=== PATIENT | female | born 2000 ===

== ENCOUNTER 2023-04-23 09:05 | Outpatient (CLI) | payer OTHER | END 2023-04-23 10:33 | disposition home or self-care (01) | LOC: PRENATAL 09:05 | PROVIDERS: ATTEND Obstetrics & Gynecology Maternal & Fetal Medicine | DX: O36.80X0 Pregnancy with inconclusive fetal viability, not applicable or unspecified (principal); Z14.8 Genetic carrier of other disease; Z3A.13 13 weeks gestation of pregnancy ==

== ENCOUNTER 2023-06-11 14:46 | Outpatient (CLI) | payer OTHER | END 2023-06-11 17:45 | disposition home or self-care (01) | LOC: PRENATAL 14:46 | PROVIDERS: ATTEND Obstetrics & Gynecology Maternal & Fetal Medicine | DX: O35.3XX0 Maternal care for (suspected) damage to fetus from viral disease in mother, not applicable or unspecified (principal); O44.00 Complete placenta previa NOS or without hemorrhage, unspecified trimester; Z3A.20 20 weeks gestation of pregnancy ==

== ENCOUNTER 2023-07-15 15:13 | Outpatient (CLI) | payer OTHER ==
[2023-07-15] MEDS ORDERED: PRENATABS RX T1 EACH PO (15:24)
== END 2023-07-16 10:33 | disposition home or self-care (01) ==
LOC: OBS/DEL 15:13
PROVIDERS: ATTEND Student in an Organized Health Care Education/Training Program
DX: O26.892 Other specified pregnancy related conditions, second trimester (principal); Z3A.24 24 weeks gestation of pregnancy; V43.02XA Car driver injured in collision with other type car in nontraffic accident, initial encounter; Y93.89 Activity, other specified; Y92.89 Other specified places as the place of occurrence of the external cause; Y99.8 Other external cause status

== ENCOUNTER 2023-09-03 08:38 | Outpatient (CLI) | payer OTHER ==
[~2023-09-03 08:38] MED LIST: PRENATABS RX T1 EACH PO
== END 2023-09-03 08:41 | disposition home or self-care (01) ==
LOC: PRENATAL 08:38
PROVIDERS: ATTEND Obstetrics & Gynecology Maternal & Fetal Medicine
DX: O26.849 Uterine size-date discrepancy, unspecified trimester (principal); O36.8199 Decreased fetal movements, unspecified trimester, other fetus; Z3A.32 32 weeks gestation of pregnancy

== ENCOUNTER 2023-09-08 23:28 | Outpatient (CLI) | payer OTHER ==
[2023-09-08] MEDS ORDERED: DIALYVITE 800-1 EACH PO (23:35)
[2023-09-09 00:21] LABS: HEMATOCRIT 31.5 % (36.0-45.00); MEAN CELL VOLUME 98.5 fL (80.00-100.00); MEAN CORPUSCULAR HEMOGLOBIN 34.3 pg (27.00-32.0); MEAN CORPUSCULAR HGB CONC 34.8 g/dl (32.0-36.0); PLATELET COUNT 231 K/uL (150-450); RED CELL DISTRIBUTION WIDTH 12.4 % (11.5-14.5)
[2023-09-09 00:31] LABS: URINE APPEARANCE Cloudy; URINE BILIRRUBIN Negative (NEGATIVE); URINE BLOOD Negative; URINE COLOR Yellow; URINE GLUCOSE Negative (NEGATIVE); URINE LEUKOCYTE Trace; URINE NITRATE Negative; URINE PROTEIN Negative (NEGATIVE); URINE UROBILINOGEN 0.2 E.U./dl
[2023-09-09 00:32] LABS: URINE BACTERIA 3246.8 uL (0.0-1933); URINE EPITHELIAL CELLS 42.3 uL (0.0-38.8); URINE RBC 3.5 uL (0.0-20.8); URINE WBC 63.8 uL (0.0-23.2)
[2023-09-09 00:58] LABS: INR 0.95; PARTIAL THROMBOPLASTIN TIME 26.9 SECONDS (22.0-34.0)
== END 2023-09-09 18:09 | disposition home or self-care (01) ==
LOC: OBS/DEL 23:28
PROVIDERS: ATTEND Obstetrics & Gynecology
DX: O26.893 Other specified pregnancy related conditions, third trimester (principal); M54.89 Other dorsalgia; Z3A.32 32 weeks gestation of pregnancy
CPT/HCPCS: 36415; 76815; 76817; 76819; 96365; 96372; 99284; J0690

== ENCOUNTER 2023-10-12 12:37 | Inpatient (IN) | payer OTHER ==
[~2023-10-12] VITALS: Ht 170.2 cm; Wt 3.2 kg
[~2023-10-12 12:37] MED LIST changes: +DIALYVITE 800-1 EACH PO
[2023-11-01 02:49] LABS: PH,URINE 6.5 (5.0-8.0); URINE APPEARANCE Clear; URINE BILIRRUBIN Negative (NEGATIVE); URINE BLOOD Negative; URINE COLOR Yellow; URINE GLUCOSE Negative (NEGATIVE); URINE LEUKOCYTE Negative; URINE NITRATE Negative; URINE PROTEIN Negative (NEGATIVE); URINE UROBILINOGEN 0.2 E.U./dl
[2023-11-01 02:51] LABS: HEMATOCRIT 35.5 % (36.0-45.00); HEMOGLOBIN 12.3 g/dL (12.0-15.00); MEAN CELL VOLUME 99.5 fL (80.00-100.00); MEAN CORPUSCULAR HEMOGLOBIN 34.3 pg (27.00-32.0); MEAN CORPUSCULAR HGB CONC 34.5 g/dl (32.0-36.0); PLATELET COUNT 235 K/uL (150-450); RED BLOOD COUNT 3.57 M/uL (4.00-6.00); RED CELL DISTRIBUTION WIDTH 12.8 % (11.5-14.5)
[2023-11-01 02:52] LABS: URINE BACTERIA 512.7 uL (0.0-1933); URINE EPITHELIAL CELLS 19.7 uL (0.0-38.8); URINE WBC 5.5 uL (0.0-23.2)
[2023-11-01 03:22] LABS: INR < 0.93; PARTIAL THROMBOPLASTIN TIME 26.2 SECONDS (22.0-34.0); PROTHROMBIN TIME 9.4 SECONDS (9.0-11.5)
[2023-11-01 22:50] LABS: ABG PH 7.345 (7.35-7.45); ABG PO2 28.8 mmHg (80-100); ABG pCO2 44.9 mmHg (35-45); BASE EXCESS -1.9 mmol/l; BICARBONATE 23.9 mmol/l (23-25); SaO2 49.6 %; Tco2 25.3 mmol/l; o2 21 %
[2023-11-02 07:02] LABS: HEMATOCRIT 33.2 % (36.0-45.00); HEMOGLOBIN 11.5 g/dL (12.0-15.00); MEAN CELL VOLUME 97.9 fL (80.00-100.00); MEAN CORPUSCULAR HEMOGLOBIN 33.8 pg (27.00-32.0); MEAN CORPUSCULAR HGB CONC 34.5 g/dl (32.0-36.0); PLATELET COUNT 202 K/uL (150-450); RED BLOOD COUNT 3.39 M/uL (4.00-6.00)
[2023-11-02] MEDS ORDERED: FOLIC ACID1 MG (11:04)
[2023-11-02] MEDS ORDERED: M-NATAL PLUS T1 EACH (11:04)
== END 2023-11-04 16:15 | disposition home or self-care (01) | DRG 788 ==
LOC: OB/GYN 10-29 12:33 → LDR 11-01 01:31 → OB/GYN 11-01 18:00
PROVIDERS: ADMIT Obstetrics & Gynecology; ATTEND Obstetrics & Gynecology
PROC: 3E033VJ Introduction of Other Hormone into Peripheral Vein, Percutaneous Approach (ICD-10-PCS; 2023-11-01)
PROC: 3E0P7VZ Introduction of Hormone into Female Reproductive, Via Natural or Artificial Opening (ICD-10-PCS; 2023-11-01)
PROC: 4A1HXCZ Monitoring of Products of Conception, Cardiac Rate, External Approach (ICD-10-PCS; 2023-11-01)
PROC: 10D00Z1 Extraction of Products of Conception, Low, Open Approach (ICD-10-PCS; principal; 2023-11-01 15:00)
DX: O62.0 Primary inadequate contractions (principal); O42.12 Full-term premature rupture of membranes, onset of labor more than 24 hours following rupture; Z3A.40 40 weeks gestation of pregnancy; Z37.0 Single live birth; Z20.822 Contact with and (suspected) exposure to COVID-19